=== PATIENT | male | born 1980 | race Caucasian/White ===

== ENCOUNTER 2021-04-21 15:11 | Emergency (ER) | payer OTHER ==
[~2021-04-21] VITALS: Ht 180.3 cm; Wt 72.6 kg
[2021-04-21 15:11] VITALS: BP 143/90
--- NOTE | 2021-04-21 15:11 | NUR ---
BIBA to bed 08.
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
--- NOTE | 2021-04-21 15:35 | NUR ---
Patient transported to CT by .
--- NOTE | 2021-04-21 15:45 | NUR ---
Patient returned from CT.
--- NOTE | 2021-04-21 16:40 | NUR ---
KATIE Forrester is at bedside for laceration repair
[2021-04-21] MEDS: BACITRACIN OINT 500 UNITS/GM PKT TP ONE (16:53)
[2021-04-21] MEDS: LIDOCAINE MPF 1% 10 MG/ML VIAL INJ ONE (16:53)
[2021-04-21] MEDS ORDERED: IBUP-2213 PO (17:29)
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
[2021-04-21 17:51] VITALS: BP 127/74
--- NOTE | 2021-04-21 18:00 | NUR ---
EMT at bedside for wound dressing
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
--- NOTE | 2021-04-21 18:03 | NUR ---
Luci bland in [facility] - 04/21/21 at 1803 by MADELYN EMT at bedside for wound dressing
== END 2021-04-21 18:02 | disposition home or self-care (01) ==
LOC: MED 15:11
DX: S01.81XA Laceration without foreign body of other part of head, initial encounter (principal); S01.311A Laceration without foreign body of right ear, initial encounter; R55 Syncope and collapse; Y04.2XXA Assault by strike against or bumped into by another person, initial encounter; Y93.89 Activity, other specified; Y92.89 Other specified places as the place of occurrence of the external cause; Y99.8 Other external cause status
CPT/HCPCS: 12014; 70450; 70486; 90471; 90715; 99284; J2001

== ENCOUNTER 2021-08-21 00:01 | Emergency (ER) | payer OTHER ==
[~2021-08-21] VITALS: Ht 175.3 cm; Wt 68.0 kg
[2021-08-21 00:01] VITALS: BP 118/72
[~2021-08-21 00:01] MED LIST: IBUP-2213 PO
--- NOTE | 2021-08-21 00:02 | NUR ---
PT BIBA BLS ER BED 9
[2021-08-21] MEDS ORDERED: LIDOCAINE MPF 1% 10 MG/ML VIAL INJ ONE (00:10)
[2021-08-21] MEDS ORDERED: BACITRACIN OINT 500 UNITS/GM PKT TP ONE (01:20)
--- NOTE | 2021-08-21 01:30 | NUR ---
PATIENT EVALED AND DC BY ER . AOX4. AMBULATORY WITH STEADY GAIT. PAIN CONTROLLED AND VERBALIZED UNDERSTANDING TO TREAT LACERATION TO HAND. PATIENT DC TO LOBBY AND TOLD TO WAIT UNTIL DAYLIGHT TO GO BACK HOME.
[2021-08-21 01:41] VITALS: BP 120/82
== END 2021-08-21 01:38 | disposition home or self-care (01) ==
LOC: MED 00:01
DX: S61.411A Laceration without foreign body of right hand, initial encounter (principal); X58.XXXA Exposure to other specified factors, initial encounter; Y93.89 Activity, other specified; Y92.89 Other specified places as the place of occurrence of the external cause; Y99.8 Other external cause status
CPT/HCPCS: 12001; 73130; 90471; 90715; 99283; J2001; Q0092

== ENCOUNTER 2022-01-13 09:34 | Emergency (ER) | payer OTHER ==
[~2022-01-13] VITALS: Ht 180.3 cm; Wt 72.6 kg
[2022-01-13 09:44] VITALS: BP 106/72
--- NOTE | 2022-01-13 09:46 | NUR ---
PT AMBULATED TO BED 11
[2022-01-13] MEDS ORDERED: IBUPROFEN 400 MG TAB PO ONE (10:00)
[2022-01-13] MEDS ORDERED: LIDOCAINE 5% 1 EA PATCH TP SCH (10:00)
[2022-01-13] MEDS ORDERED: ACETAMINOPHEN 325 MG TAB PO ONE (10:00)
--- NOTE | 2022-01-13 10:05 | NUR ---
42M presents to ED with c/o lower back pain x2days. Pt reports an intermittent, aching like, 10/10 pain, took ibuprofen and aspirin yesterday with mild relief, denies taking meds for pain today. Pt denies trauma/injury to lower back, reports worsens when laying down and with movement. No swelling or bruising noted upon assessment.
--- NOTE | 2022-01-13 10:25 | NUR ---
Patient discharged with v/s stable. Written and verbal after care instructions given and explained. Patient verbalized understanding. Ambulatory with steady gait. All questions addressed prior to discharge. Advised to follow up with PMD.
== END 2022-01-13 10:25 | disposition home or self-care (01) ==
LOC: MED 09:34
DX: M54.50 Low back pain, unspecified (principal)
CPT/HCPCS: 99284